=== PATIENT | male | born 1955 | race Caucasian/White ===

== ENCOUNTER 2020-11-19 21:37 | Observation (INO) | payer OTHER, SELFPAY ==
[2020-11-19 21:40] VITALS: BP 137/79; PULSE 75; RESP 18; TEMP 36.6; O2SAT 97; BMI 24.0
--- NOTE | 2020-11-19 22:20 | DI.RAD.S_ITS ---
PROCEDURE: XR RIBS LT MIN 3V W CXR1V INDICATIONS: fall, pain on left side TECHNIQUE: 2 views of the left ribs were acquired, along with a single view chest. COMPARISON: None. FINDINGS: Surgical changes and devices: None. Bones and chest wall: Mild to moderately displaced fractures of the left 7th 8th and 9th ribs. At least 2 of these appear segmental in nature. Lungs and pleura: Scattered subsegmental atelectasis and/or scarring. No focal consolidation. No pneumothorax. Possible trace left pleural effusion. There is blunting of the left costophrenic angle Mediastinum: Mediastinal contours appear normal. Heart size is normal. IMPRESSION: Multiple left rib fractures as above. Two of these may be segmental. Possible trace left pleural effusion and blunting of the left costophrenic angle. No pneumothorax Findings concordant with preliminary study interpretation. Dictated by: Maurilio Perera M.D. on 11/20/2020 at 8:10 Approved by: Maurilio Perera M.D. on 11/20/2020 at 8:53
[2020-11-19] MEDS: KETOROLAC 30 MG/ML VIAL 15 MG IV (22:26)
[2020-11-19] MEDS: OXYCODONE/ACETAMINOPHEN 5/325 TABLET 1 TAB PO (22:28)
[2020-11-19 22:45] LABS: Add Manual Diff / Slide Review NO; Basophils Absolute Auto 100 /uL (0-100); Basophils Percent Auto 0.6 % (0-2); Eosinophils Absolute Auto 100 /uL (0-450); Eosinophils Percent Auto 0.5 % (2-4); Hematocrit 39.9 % (41-53); Hemoglobin 13.4 g/dL (13.5-17.5); Lymphocytes Absolute Auto 2100 /uL (1100-4500); Lymphocytes Percent Auto 17.1 % (25-40); Mean Corpuscular HGB Conc 33.6 % (30-36); Mean Corpuscular Hemoglobin 30.8 PG (26-34); Mean Corpuscular Volume 91.7 fL (80-100); Monocytes Absolute Auto 1200 /uL (0-900); Monocytes Percent Auto 9.3 % (3-14); Neutrophils Absolute Auto 9100 /uL (1500-7000); Neutrophils Percent Auto 72.5 % (50-75); Platelet Count 273 X10^3/uL (150-400); Red Blood Cell Count 4.35 X10^6/uL (4.5-5.9); Red Cell Distribution Width 15.5 % (11.6-14.8); White Blood Cell Count 12.5 X10^3/uL (4.5-11.0)
[2020-11-19 22:50] LABS: Alanine Aminotransferase 23 IU/L (<50); Albumin 4.2 g/dL (3.5-5.0); Albumin Globulin Ratio 1.5 (1.0-2.8); Alkaline Phosphatase 74 U/L (38-126); Aspartate Aminotransferase 39 IU/L (17-59); BUN Creatinine Ratio 17.5 (6-22); Bilirubin Total 0.7 mg/dL (0.2-1.3); Blood Urea Nitrogen 11 mg/dL (9-20); Calcium 9.5 mg/dL (8.4-10.2); Carbon Dioxide 28 mmol/L (22-32); Chloride 103 mmol/L (98-107); Estimated Glomerular Filt Rate > 60.0 mL/min (>60); Globulin 2.8 g/dL (1.7-4.1); Glucose 104 mg/dL (80-110); HEMOLYSIS 39 (0-50); Potassium 3.8 mmol/L (3.4-5.1); Sodium 139 mmol/L (137-145)
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
[2020-11-20] MEDS: HYDROMORPHONE 0.5 MG INJ IV (00:14)
[2020-11-20 01:07] VITALS: BP 153/93; PULSE 62; RESP 20; TEMP 36.1; O2SAT 97
[2020-11-20 01:22] VITALS: BMI 25.0
[2020-11-20 01:31] VITALS: PULSE 78; RESP 16; O2SAT 96
[2020-11-20 01:43] LABS: COVID19 - ADMIT (NP swab/PCR) Negative (Negative)
[2020-11-20] MEDS: HEPARIN 5,000 UNIT/ML VIAL 5000 UNIT SUBCUT ×2 (02:20→10:08)
[2020-11-20] MEDS: HYDROCODONE/ACET 5/325 TABLET 2 TAB PO ×3 (02:21→10:56)
--- NOTE | 2020-11-20 03:43 | PC.ADMIT ---
[id number] [facility] Ad[facility]: Patient arrived to the unit via stretcher from ED at 0107. Patient is A/O, on RA and states pain is a 5/10 with no movement and 7/10 with movement. Patients home meds were placed in the nurses weather observer for pharmacy pick up worker in the morning. Home medications were reviewed with one medication not added d/t patient not knowing what the medication name or dosing was, patient only knew it was an anxitey medication that is taken PRN up to 6 doses daily. Patient was oriented to the room, call light, and fall precautions. Call light and belongings were left within reach, no other requests at this time. The patient,Gaurav Pardo,65 y/o, was given written information regarding hospital policies, unit procedures and contact persons. Patient's smoking status: Current some day smoker. Vital Signs - 8 hr 11/19/20 21:40 11/20/20 01:07 11/20/20 01:31 Temperature 97.8 F 97.0 F L Pulse Rate 75 62 78 Respiratory Rate 18 20 16 Blood Pressure 137/79 153/93 H Pulse Oximetry 97 97 96
[2020-11-20 04:23] VITALS: BP 150/89; PULSE 79; RESP 18; TEMP 36.7; O2SAT 97
--- NOTE | 2020-11-20 05:00 | DI.RAD.S_ITS ---
PROCEDURE: XR CHEST 1V INDICATIONS: trauma follow up TECHNIQUE: One view of the chest was acquired. COMPARISON: [facility], CR, XR RIBS LT MIN 3V W CXR1V, 11/19/2020, 22:17. FINDINGS: Surgical changes and devices: None. Lungs and pleura: Left basilar atelectasis and probable minimal pleural fluid. No delayed pneumothorax noted. Mediastinum: Mediastinal contours appear normal. Heart size is normal. Bones and chest wall: No suspicious bony lesions. Overlying soft tissues appear unremarkable. Multiple left rib fractures involving the 7th, 8th, and 9th lateral ribs. IMPRESSION: 1. Multiple left lower rib fractures. 2. Left basilar atelectasis and minimal left pleural fluid. 3. No pneumothorax. Dictated by: Mg Moffett M.D. on 11/20/2020 at 9:26 Approved by: Mg Moffett M.D. on 11/20/2020 at 9:28
--- NOTE | 2020-11-20 05:52 | PC.NURSE ---
Pt was monitored with SPO2 and BP. Vitals WNL, discharged vitals before recorded.
[2020-11-20 07:30] VITALS: BP 144/62; PULSE 71; RESP 20; TEMP 36.6; O2SAT 93
[2020-11-20 08:15] VITALS: O2SAT 95
--- NOTE | 2020-11-20 08:50 | PT.IIE ---
Medical History (Last Reviewed 11/20/20 @ 09:51 by Rain Nixon MD) BPH (benign prostatic hyperplasia) Hyperlipidemia Hypertension Physical Therapy Inpatient Evaluation/Re-Eval M1 PT/OT-IP Prior Functional Status Start: 11/20/20 12:07 Freq: NEEDED Status: Active Protocol: Document 11/20/20 08:50 AB (Rec: 11/20/20 12:39 AB [id number]) Medical Review Prior Functional Status Medical History Reviewed Yes Communication able to make needs known Mobility and Gait pt stated that he is independent with all mobilities and ambulation without AD Social History Household Members none Living Arrangements House Number of Floors (Floors) Two Floors Number of Stairs To Enter/Railing? pt will stay at his friend's house for a few days upon d/c: has 2 steps R rail ascending to enter; 10 steps down to bedroom basement with R rail descending Home Environment Standard Height Toilet,Tub/ Shower Home Equipment Hand Held Shower M2 PT-IP Current Condition Start: 11/20/20 12:07 Freq: NEEDED Status: Active Protocol: Document 11/20/20 08:50 AB (Rec: 11/20/20 12:39 AB [id number]) Physical Therapy Current Condition Current Condition Evaluation Date 11/20/20 Treatment Diagnosis falls; ribs 7,8,9 fractures; L lung contusion; diff in walking Onset Date 11/20/20 Precautions Other Precautions falls M3 PT-IP Subjective Start: 11/20/20 12:07 Freq: NEEDED Status: Active Protocol: Document 11/20/20 08:50 AB (Rec: 11/20/20 12:39 AB [id number]) Subjective Physical Therapy Visit Type Type Initial Evaluation Visit Start Time 08:50 Visit Stop Time 09:40 Total Visit Minutes 50 Number of [employer] OTHER RANKS Visits 0 Physical Therapy Visit Comments Patient Comments agreeable to do PT Therapy Pain Assessment Pain When Pain Assessed At Rest Pain Present Pain Present Pain Reported Location Left Ribs Intensity 5 Scale Used increases with coughing and deep breathing Pain Management Techniques Apply Cold,Distraction, Modification of Treatment,Re- positioning,Timing of Activity with Medications M4 PT-IP Mobility and Gait Start: 11/20/20 12:07 Freq: NEEDED Status: Active Protocol: Document 11/20/20 08:50 AB (Rec: 11/20/20 12:39 AB [id number]) PT-Bed Mobility Assessment Rolling Type of Rolling Log Rolling Level of Assist Standby Assistance Supine to Sit Supine to Sit Standby Assistance PT-Transfer Assessment Sit to and From Stand Sit to and from Stand Standby Assistance,1 Person Assistance,Use of Upper Extremities Equipment Transfer Assistive Device None,Gait Belt Orthotic/Prosthetic Devices or Brace: No Transfers Transfer Destination Chair Transfer Technique ambulated without AD Transfer Ability Level of Assist Standby Assistance Comments Mobility Comments educated pt on precautions/log roll bed mobility and splinting of rib fractures when coughing/movement. pt understood. completed log roll bed mobility SBA. completed sit to stand SBA and ambulated in room SBA. presents with antalgic gait and decrease step length. agreed to walk in the hallway and completed ~ 150 ft using FWW SBA. completed up/down steps using R rail SBA and repeated using L rail x 3 sets. pt ambulated back to the room SBA. with LOB x 1 but able to recover without assist needed. pt requested to use the toilet and ambulated to the toilet SBA. ambulated to the sink and was able to maintain standing SBA while doing handwashing. sat on chair. positioned on chair. call light and table placed within reach. Left pt with the doctor. Gait Assessment Gait Gait Assistance Required: Standby Assistance,Contact Guard Assist Distance (Feet) 150 Able to Maintain Weight Bearing Status Yes During Gait Assistive Devices Assistive Device None,Gait Belt Orthotic/Prosthetic Devices or Brace: No Gait Deviations General Gait Pattern Antalgic Factors Limiting Gait Function Factors Limiting Gait Function Decreased Activity Tolerance, Decreased Strength,Limited Range of Motion,Pain,Poor Balance,Poor Safety Awareness, Respiratory Distress Stair Climbing Assessment Evaluation Level of Assist On Stairs Standby Assistance Devices Stair Climbing Assistive Devices Left Railing,Right Railing Technique/Endurance Stair Climbing Direction Ascend and Descend Stair Climbing Technique Step Over Step Number of Steps Climbed 3 Query Text: Stair Climbing Set # Repetitions (reps) 4 Comments Stair Climbing Comments pls refer to mobility section for details PT-Balance Assessment Sitting Balance and Reactions Static Sitting Balance Ability Normal Dynamic Sitting Balance Ability Good Standing Balance and Reactions Static Standing Balance Ability Good Dynamic Standing Balance Ability Fair Device Used without AD M5 PT-IP Objective Assessments Start: 11/20/20 12:07 Freq: NEEDED Status: Active Protocol: Document 09/14/21 08:50 AB (Rec: 11/20/20 12:39 AB [id number]) Orientation Orientation/Cognition Level of Alertness Alert Orientation Name,Age,Birthday,Month,Date, Year,Day of Week,Place, Situation Language Function Ability No Deficits Noted Memory Description No Deficits Noted Gross Range of Motion Lower Extremity ROM Assessment Within Functional Limits Strength Lower Extremity Strength Assessment Within Functional Limits Coordination Assessment Gross Coordination Gross Coordination WNL Muscle Tone Muscle Tone WNL Yes M6 PT-IP Treatment Start: 11/20/20 12:07 Freq: NEEDED Status: Active Protocol: Document 11/20/20 08:50 AB (Rec: 11/20/20 12:39 AB [id number]) Physical Therapy Treatment Education Education Provided Precautions,Safety M7 PT-IP Assessment and Plan Start: 11/20/20 12:07 Freq: NEEDED Status: Active Protocol: Document 11/20/20 08:50 AB (Rec: 11/20/20 12:39 AB [id number]) PT Summary Assessment and Plan Potential Rehabilitation Potential Good Status of Condition at Evaluation Stable Summary Impairments Pain,ROM,Strength,Balance, Coordination,Sensation,Tone, Cognition,Bed Mobility, Transfers,Gait,Activity Tolerance Assessment Summary pt requiring SBA with mobility and plans to stay at his friend's house for a few days and his friend will be able to assist him as needed. pt may go home when medically stable . Goals Bed Mobility Goal Independent Transfer Goal Independent Gait Goal Independent Gait Distance 250 Other Goals up/down 10 steps L rail ascending I up/down 2 steps R rail ascending I Days to Meet Goals 3 Frequency of Treatment Frequency Of Treatment Once a Day Treatment Plan Physical Therapy Treatment Plan Bed Mobility Training,Transfer Training,Gait Training, Therapeutic Exercise,Balance Retraining,Post Op Education, Discharge Planning,Hot or Cold Pack,Neuromuscular Re-ed, Coordination Retraining,Manual Therapy Recommendations To Nursing Amount of Assist Needed Standby Assistance Discharge Recommendations PT Discharge Recommendations Home with Assistance Transportation Needs at Discharge Private Vehicle
--- NOTE | 2020-11-20 08:50 | PT.IIE ---
Medical History (Last Reviewed 11/20/20 @ 09:51 by Rain Nixon MD) BPH (benign prostatic hyperplasia) Hyperlipidemia Hypertension Physical Therapy Inpatient Evaluation/Re-Eval M1 PT/OT-IP Prior Functional Status Start: 11/20/20 12:07 Freq: NEEDED Status: Active Protocol: Document 11/20/20 08:50 AB (Rec: 11/20/20 12:39 AB [id number]) Medical Review Prior Functional Status Medical History Reviewed Yes Communication able to make needs known Mobility and Gait pt stated that he is independent with all mobilities and ambulation without AD Social History Household Members none Living Arrangements House Number of Floors (Floors) Two Floors Number of Stairs To Enter/Railing? pt will stay at his friend's house for a few days upon d/c: has 2 steps R rail ascending to enter; 10 steps down to bedroom basement with R rail descending Home Environment Standard Height Toilet,Tub/ Shower Home Equipment Hand Held Shower M2 PT-IP Current Condition Start: 11/20/20 12:07 Freq: NEEDED Status: Active Protocol: Document 11/20/20 08:50 AB (Rec: 11/20/20 12:39 AB [id number]) Physical Therapy Current Condition Current Condition Evaluation Date 11/20/20 Treatment Diagnosis falls; ribs 7,8,9 fractures; L lung contusion; diff in walking Onset Date 11/20/20 Precautions Other Precautions falls M3 PT-IP Subjective Start: 11/20/20 12:07 Freq: NEEDED Status: Active Protocol: Document 11/20/20 08:50 AB (Rec: 11/20/20 12:39 AB [id number]) Subjective Physical Therapy Visit Type Type Initial Evaluation Visit Start Time 08:50 Visit Stop Time 09:40 Total Visit Minutes 50 Number of NATIONAL ACCOUNT MANAGER Visits 0 Physical Therapy Visit Comments Patient Comments agreeable to do PT Therapy Pain Assessment Pain When Pain Assessed At Rest Pain Present Pain Present Pain Reported Location Left Ribs Intensity 5 Scale Used increases with coughing and deep breathing Pain Management Techniques Apply Cold,Distraction, Modification of Treatment,Re- positioning,Timing of Activity with Medications M4 PT-IP Mobility and Gait Start: 11/20/20 12:07 Freq: NEEDED Status: Active Protocol: Document 11/20/20 08:50 AB (Rec: 09/14/21 12:39 AB [id number]) PT-Bed Mobility Assessment Rolling Type of Rolling Log Rolling Level of Assist Standby Assistance Supine to Sit Supine to Sit Standby Assistance PT-Transfer Assessment Sit to and From Stand Sit to and from Stand Standby Assistance,1 Person Assistance,Use of Upper Extremities Equipment Transfer Assistive Device None,Gait Belt Orthotic/Prosthetic Devices or Brace: No Transfers Transfer Destination Chair Transfer Technique ambulated without AD Transfer Ability Level of Assist Standby Assistance Comments Mobility Comments educated pt on precautions/log roll bed mobility and splinting of rib fractures when coughing/movement. pt understood. O2 sat at rest room air: 93-95%. completed log roll bed mobility SBA. O2 sat 87%. cued for deep breathing and increased to 92% in <10 sec. completed sit to stand SBA and ambulated in room SBA. presents with antalgic gait and decrease step length. agreed to walk in the hallway and completed ~ 150 ft using FWW SBA. completed up/down steps using R rail SBA and repeated using L rail x 3 sets. pt ambulated back to the room SBA. with LOB x 1 but able to recover without assist needed. pt requested to use the toilet and ambulated to the toilet SBA. ambulated to the sink and was able to maintain standing SBA while doing handwashing. sat on chair. positioned on chair. call light and table placed within reach. Left pt with the doctor. O2 sat during transfers and ambulation: 88- 90% with good recovery to 93% with deep breathing and resting. Gait Assessment Gait Gait Assistance Required: Standby Assistance,Contact Guard Assist Distance (Feet) 150 Able to Maintain Weight Bearing Status Yes During Gait Assistive Devices Assistive Device None,Gait Belt Orthotic/Prosthetic Devices or Brace: No Gait Deviations General Gait Pattern Antalgic Factors Limiting Gait Function Factors Limiting Gait Function Decreased Activity Tolerance, Decreased Strength,Limited Range of Motion,Pain,Poor Balance,Poor Safety Awareness, Respiratory Distress Stair Climbing Assessment Evaluation Level of Assist On Stairs Standby Assistance Devices Stair Climbing Assistive Devices Left Railing,Right Railing Technique/Endurance Stair Climbing Direction Ascend and Descend Stair Climbing Technique Step Over Step Number of Steps Climbed 3 Query Text: Stair Climbing Set # Repetitions (reps) 4 Comments Stair Climbing Comments pls refer to mobility section for details PT-Balance Assessment Sitting Balance and Reactions Static Sitting Balance Ability Normal Dynamic Sitting Balance Ability Good Standing Balance and Reactions Static Standing Balance Ability Good Dynamic Standing Balance Ability Fair Device Used without AD M5 PT-IP Objective Assessments Start: 11/20/20 12:07 Freq: NEEDED Status: Active Protocol: Document 11/20/20 08:50 AB (Rec: 11/20/20 12:39 AB [id number]) Orientation Orientation/Cognition Level of Alertness Alert Orientation Name,Age,Birthday,Month,Date, Year,Day of Week,Place, Situation Language Function Ability No Deficits Noted Memory Description No Deficits Noted Gross Range of Motion Lower Extremity ROM Assessment Within Functional Limits Strength Lower Extremity Strength Assessment Within Functional Limits Coordination Assessment Gross Coordination Gross Coordination WNL Muscle Tone Muscle Tone WNL Yes M6 PT-IP Treatment Start: 11/20/20 12:07 Freq: NEEDED Status: Active Protocol: Document 11/20/20 08:50 AB (Rec: 11/20/20 12:39 AB [id number]) Physical Therapy Treatment Education Education Provided Precautions,Safety M7 PT-IP Assessment and Plan Start: 11/20/20 12:07 Freq: NEEDED Status: Active Protocol: Document 11/20/20 08:50 AB (Rec: 11/20/20 12:39 AB [id number]) PT Summary Assessment and Plan Potential Rehabilitation Potential Good Status of Condition at Evaluation Stable Summary Impairments Pain,ROM,Strength,Balance, Coordination,Sensation,Tone, Cognition,Bed Mobility, Transfers,Gait,Activity Tolerance Assessment Summary pt requiring SBA with mobility and plans to stay at his friend's house for a few days and his friend will be able to assist him as needed. pt may go home when medically stable . Goals Bed Mobility Goal Independent Transfer Goal Independent Gait Goal Independent Gait Distance 250 Other Goals up/down 10 steps L rail ascending I up/down 2 steps R rail ascending I Days to Meet Goals 3 Frequency of Treatment Frequency Of Treatment Once a Day Treatment Plan Physical Therapy Treatment Plan Bed Mobility Training,Transfer Training,Gait Training, Therapeutic Exercise,Balance Retraining,Post Op Education, Discharge Planning,Hot or Cold Pack,Neuromuscular Re-ed, Coordination Retraining,Manual Therapy Recommendations To Nursing Amount of Assist Needed Standby Assistance Discharge Recommendations PT Discharge Recommendations Home with Assistance Transportation Needs at Discharge Private Vehicle
--- NOTE | 2020-11-20 09:48 | PM.HP.1 ---
History of Present Illness History of Present Illness Date Patient Seen: 11/20/20 Time Patient Seen: 09:48 Date of Onset of Symptoms: 11/19/20 Chief complaint: Fall 10+' Back pain Narrative: Was on his boat when he fell into an open biswas, no LOC. Significant pain chest pain and pain with breathing. Patient History Medical History BPH (benign prostatic hyperplasia) Hyperlipidemia Hypertension Family & Social History Social History: household members none Prior Living Arrangements House Safety & Behavioral: Feels Safe in Current Yes Environment Been Physically Hurt or No Threatened By a Person Suicidal Ideation Description None Suicide Plan Description No Plan Tobacco & Substance use: Tobacco type cigars Smoking Status Current some day smoker alcohol intake current alcohol intake frequency holiday/special occasion Substance Use Type marijuana Meds Home Medications and Allergies Home Medications Medication Instructions Recorded Confirmed Type acetaminophen 325 mg tablet 650 mg PO Q6HR PRN #30 tab 11/20/20 Rx atorvastatin 80 mg tablet 40 mg PO DAILY 11/20/20 11/20/20 History celecoxib 200 mg capsule (Celebrex) 200 mg PO BID #30 cap 11/20/20 Rx hydrocodone 5 mg-acetaminophen 325 2 tab PO Q4HR PRN #30 tab 11/20/20 Rx mg tablet hydroxyzine HCl 10 mg tablet 10 mg PO DAILY 11/20/20 11/20/20 History losartan 100 mg tablet 100 mg PO DAILY 11/20/20 11/20/20 History tamsulosin 0.4 mg capsule 0.4 mg PO DAILY 11/20/20 11/20/20 History Allergies Allergy/AdvReac Type Severity Reaction Status Date / Time codeine Allergy Verified 11/19/20 22:02 Review of Systems Review of Systems ROS: Yes All systems reviewed with the patient and are negative except as otherwise documented Exam Vital Signs (past 8 hours): - 11/20/20 04:23 11/20/20 07:30 11/20/20 08:15 Temperature 98.1 F 97.9 F Pulse Rate 79 71 Respiratory Rate 18 20 Blood Pressure 150/89 H 144/62 H Pulse Oximetry 97 93 95 Oxygen Delivery Method Room Air Oxygen Flow Rate 0 Const General: cooperative and healthy appearing Nutritional Appearance: average body habitus Orientation: alert and oriented x3 HENMT Head: normocephalic and atraumatic Ears: hearing grossly normal bilaterally Nose: external nose normal Face and sinus: normal facial exam Eyes General: appearance normal, both eyes and all related structures Neck Neck: trachea midline and supple Chest Chest: tenderness (left sided) Resp Effort & Inspection: normal respiratory effort and able to speak in complete sentences Cardio Rate: regular rate Rhythm: regular rhythm GI Inspection: normal to inspection Skin General: no rashes or lesions noted and turgor normal Neuro General: patient alert and patient oriented x3 Cognition: normal cognition Extrem General: normal to inspection Psych Appearance: grossly normal Affect: normal affect Attitude: cooperative Judgment: judgment good Objective Labs Result Diagrams: 11/19/20 21:45 11/19/20 21:45 Labs: Laboratory Results - last 24 hr 11/19/20 11/19/20 11/20/20 21:45 21:45 00:30 WBC 12.5 H RBC 4.35 L Hgb 13.4 L Hct 39.9 L MCV 91.7 MCH 30.8 MCHC 33.6 RDW 15.5 H Plt Count 273 Neut % (Auto) 72.5 Lymph % (Auto) 17.1 L [place] % (Auto) 9.3 Eos % (Auto) 0.5 L Baso % (Auto) 0.6 Neut # (Auto) 9100 H Lymph # (Auto) 2100 [place] # (Auto) 1200 H Eos # (Auto) 100 Baso # (Auto) 100 Sodium 139 Potassium 3.8 Chloride 103 Carbon Dioxide 28 BUN 11 Creatinine 0.63 L Estimated GFR > 60.0 BUN/Creatinine Ratio 17.5 Glucose 104 Calcium 9.5 Total Bilirubin 0.7 AST 39 ALT 23 Alkaline Phosphatase 74 Total Protein 7.0 Albumin 4.2 Globulin 2.8 Albumin/Globulin Ratio 1.5 SARS-CoV-2 (PCR) Negative Assessment & Plan Assessment & Plan narrative: Left sided rib fractures mildly displaced. S/P fall. Admitted for pain control and pulmonary toilet. No active bleeding or delay pneumothorax. COVID-19 COVID-19 status: Negative Time Spent With Patient Time with patient: 30 to 49 minutes with 50% spent counseling/coordinating care Critical Care time: I spent a total of [] minutes of critical care time on this patient's care today; this time is exclusive of procedural time.
--- NOTE | 2020-11-20 09:55 | P.DS_ITS ---
History of Present Illness History of Present Illness Date Patient Seen: 11/20/20 Time Patient Seen: 09:56 Date of Onset of Symptoms: 11/19/20 Chief complaint: Fall 10+' Back pain Narrative: Was on his boat when he fell into an open biswas, no LOC. Significant pain chest pain and pain with breathing. Discharge Providers Provider Date of admission: 11/20/20 00:15 Discharge Date: 11/20/20 Consults: 11/20/20 00:16 Consult to Physical Therapy Evaluate & Treat Comment: rib fractures Physician Instructions: Evaluate and Treat 11/20/20 00:17 Consult to Respiratory Therapy Evaluate & Treat Comment: pulmonary contusion Physician Instructions: Evaluate and treat Discharge provider: Rain Nixon MD Summary Hospital Course Discharge Diagnosis: left rib fractures, s/p fall Hospital Course: observation. Consults with PT and RT Status at Discharge Cognitive/behavioral status at discharge: oriented Overall status at discharge: patient is progressing back to baseline Time Spent with Patient Time spent: Less than 30 minutes Exam Vital Signs (past 8 hours): - 11/20/20 04:23 11/20/20 07:30 11/20/20 08:15 Temperature 98.1 F 97.9 F Pulse Rate 79 71 Respiratory Rate 18 20 Blood Pressure 150/89 H 144/62 H Pulse Oximetry 97 93 95 Oxygen Delivery Method Room Air Oxygen Flow Rate 0 Const General: cooperative and healthy appearing Nutritional Appearance: average body habitus HENMT Head: normal to inspection Face and sinus: normal facial exam Eyes General: appearance normal, both eyes and all related structures Neck Neck: trachea midline Chest Chest: tenderness (left sided chest wall) Resp Effort & Inspection: normal respiratory effort and able to speak in complete sentences Cardio Rate: regular rate Rhythm: regular rhythm GI Inspection: normal to inspection Back/Spine/Pelvis Back: normal to inspection Skin General: no rashes or lesions noted Neuro General: patient alert and patient oriented x3 Cognition: normal cognition Gait: normal gait Extrem General: full ROM Psych Appearance: grossly normal Judgment: judgment good Objective Labs Result Diagrams: 11/19/20 21:45 11/19/20 21:45 Labs: Laboratory Results - last 24 hr 11/19/20 11/19/20 09 21:45 21:45 00:30 WBC 12.5 H RBC 4.35 L Hgb 13.4 L Hct 39.9 L MCV 91.7 MCH 30.8 MCHC 33.6 RDW 15.5 H Plt Count 273 Neut % (Auto) 72.5 Lymph % (Auto) 17.1 L [place] % (Auto) 9.3 Eos % (Auto) 0.5 L Baso % (Auto) 0.6 Neut # (Auto) 9100 H Lymph # (Auto) 2100 [place] # (Auto) 1200 H Eos # (Auto) 100 Baso # (Auto) 100 Sodium 139 Potassium 3.8 Chloride 103 Carbon Dioxide 28 BUN 11 Creatinine 0.63 L Estimated GFR > 60.0 BUN/Creatinine Ratio 17.5 Glucose 104 Calcium 9.5 Total Bilirubin 0.7 AST 39 ALT 23 Alkaline Phosphatase 74 Total Protein 7.0 Albumin 4.2 Globulin 2.8 Albumin/Globulin Ratio 1.5 SARS-CoV-2 (PCR) Negative [facility] Medical History BPH (benign prostatic hyperplasia) Hyperlipidemia Hypertension Social History household members: none Smoking Status: Current some day smoker alcohol intake: current Discharge Assessment & Plan Assessment and Plan Assessment: Will stay with a friend from [place]. Plan of Treatment: Pain control, pulmonary toilet Discharge Plan Discharge Plan Patient Disposition: Home Provider Discharge Comment: No contact sports or heavy lifting for 2 weeks. Discharge orders & Medications Prescriptions: New acetaminophen 325 mg Tablet 650 mg PO Q6HR PRN (Reason: Fever/Mild Pain (1-3)) Qty: 30 RF: 0 hydrocodone-acetaminophen 5-325 mg Tablet 2 tab PO Q4HR PRN (Reason: Pain, Severe (7-10)) Qty: 30 RF: 0 celecoxib [Celebrex] 200 mg capsule 200 mg PO BID Qty: 30 RF: 1 Continued atorvastatin 80 mg tablet 40 mg PO DAILY RF: 0 tamsulosin 0.4 mg capsule 0.4 mg PO DAILY RF: 0 hydroxyzine HCl 10 mg tablet 10 mg PO DAILY RF: 0 losartan 100 mg tablet 100 mg PO DAILY RF: 0 Diet/Activity/Treatments Diet: Diet as Tolerated Activity: as tolerated. No contact sports or lifting >20 bls for 2 weeks Cold/Heat Therapy: cold pack for 1 48hrs and then heat as needed Discharge Data Attending Provider: Rain Nixon
--- NOTE | 2020-11-20 10:53 | CM.DANOTE ---
Addendum entered by Shelbi Okeefe R.N. 11/20/20 12:18: Checked in with patient again. Confirmed that his friend, Mary, will be picking him up. He indicated that he was wondering if [place] would be receiving information. Let him know that clinical information would be sent. He also confirmed that his doctor is Dr. Rocael Can, internal medicine at [facility] in [place], [place]. He has a follow up appointment with them next Thursday. He is wondering about getting copies of his x-rays on a disc sent to him. He has their address, encouraged him to call medical records, which stated, he will. Original Note: DCP: Case received, EMR reviewed and met with patient. Introduced self and role. Was able to obtain information regarding patient's baseline activity status prior to hospitalization. DCP assessment completed with information currently available. Patient is a 65 year old male who admitted early this morning to the care of the hospitalist team. PCP: [place] provider Payer: confirmed: [facility] Advantage. Patient came to the hospital via ambulance secondary to a ground level fall that occurred when he was working on his boat. He had tripped over the biswas when working on his boat. He was having pain in his ribs, and had to crawl for help He was sent here to the hospital via ambulance. Met with patient in his room. He was working with P.T. He is pleasant, alert and oriented. He resides in [place], [place], and has his provider there at [place]. He has a boat in [place]. He is independent at baseline. Bates has a friend in the area, as well. P: Patient is to be discharged home today. He is to not do any heavy lifting for a while. He has already worked with P.T. Shelbi Okeefe RN/[employer]
[2020-11-20 15:48] VITALS: BP 140/93; PULSE 69; RESP 18; TEMP 36.5; O2SAT 95
--- NOTE | 2020-11-20 16:22 | PC.NURSE ---
discharge instructions given to patient. patient was looking for a blue jacket, pt unsure weather he brought it or not. checked ED, they don't have it.
== END 2020-11-20 17:10 | disposition home or self-care (01) ==
LOC: ED 11-20 00:13 → AC 11-20 00:16
PROVIDERS: Admitting Provider Surgery; Emergency Provider Emergency Medicine; Referring Provider Emergency Medicine; Visit Provider Surgery
DX: S22.42XA Multiple fractures of ribs, left side, initial encounter for closed fracture (principal); N40.0 Benign prostatic hyperplasia without lower urinary tract symptoms; I10 Essential (primary) hypertension; E78.5 Hyperlipidemia, unspecified; F17.290 Nicotine dependence, other tobacco product, uncomplicated; W17.89XA Other fall from one level to another, initial encounter; Y92.814 Boat as the place of occurrence of the external cause; Z20.828 Contact with and (suspected) exposure to other viral communicable diseases
CPT/HCPCS: 71045; 71101; 80053; 85025; 87635; 94762; 96372; 96374; 96375; 97161; 97530; 99219; 99284; C9803; G0378; J1170; J1644; J1885